=== PATIENT | female | born 1975 | race Caucasian/White ===

== ENCOUNTER → 2017-05-19 | Outpatient (CLI) | payer OTHER ==
[~2017-05-19] MED LIST: ALBUAER INH; IBUP-1451 PO; MTR600X PO; TRAM-10 PO
[2017-05-19 12:33] LABS: ESTIMATED AVERAGE GLUCOSE 105 mg/dl; HA1C FLAG Normal (Normal)
[2017-05-19 12:54] LABS: BLOOD UREA NITROGEN 16 mg/dl (7-18); BUN/CREATININE RATIO 18.6 (10-20); CALCIUM 8.6 mg/dl (8.5-10.1); CARBON DIOXIDE 25 mmol/L (21-32); CHLORIDE 108 mmol/L (98-107); CREATININE 0.85 mg/dl (0.60-1.20); GLUCOSE 84 mg/dl (70-99); POTASSIUM 4.3 mmol/L (3.5-5.1); SODIUM 140 mmol/L (136-145)
[2017-05-19 12:58] LABS: CHOLESTEROL 223 mg/dl (0-200); CHOLESTEROL/HDL RATIO 4.3; HDL CHOLESTEROL 52 mg/dl; LDL CHOLESTEROL CALCULATED 132 mg/dl; TRIGLYCERIDES 195 mg/dl (0-150); VERY LOW DENSITY LIPOPROT CALC 39 mg/dl
== END | disposition home or self-care (01) ==
LOC: C.LABPBG 10:46
PROVIDERS: ATTEND Physician Assistant
DX: Z00.00 Encounter for general adult medical examination without abnormal findings (principal); R63.5 Abnormal weight gain; E28.2 Polycystic ovarian syndrome

== ENCOUNTER → 2017-06-07 | Outpatient (CLI) | payer OTHER ==
[2017-06-07 12:39] LABS: ALT/SGPT 15 U/L (12-78); AST/SGOT 8 U/L (15-37); BLOOD UREA NITROGEN 11 mg/dl (7-18); BUN/CREATININE RATIO 11.7 (10-20); CALCIUM 8.3 mg/dl (8.5-10.1); CARBON DIOXIDE 24 mmol/L (21-32); CHLORIDE 106 mmol/L (98-107); CREATININE 0.98 mg/dl (0.60-1.20); GLUCOSE 139 mg/dl (70-99); POTASSIUM 3.7 mmol/L (3.5-5.1); SODIUM 137 mmol/L (136-145)
[2017-06-07 12:48] LABS: ALB/GLOB RATIO 0.9 (0.9-2); ALKALINE PHOSPHATASE 47 U/L (45-117)
== END | disposition home or self-care (01) ==
LOC: C.LABPBG 10:50
PROVIDERS: ATTEND Obstetrics & Gynecology
DX: E28.2 Polycystic ovarian syndrome (principal); R53.83 Other fatigue

== ENCOUNTER → 2017-06-15 | Outpatient (CLI) | payer OTHER ==
[2017-06-15 12:24] LABS: BASO % 0.3 %; BASO ABS # 0.03 K/uL (0-0.2); COMPLETE YES; EOS % 2.4 %; HEMATOCRIT 39.8 % (37-47); IG% 0.4 %; LYMPH % 36.3 %; LYMPH ABS # 3.24 K/uL (1.2-3.4); MEAN CELL VOLUME 89.6 fL (80-100); MEAN CORPUSCULAR HEMOGLOBIN 30.2 pg (25-34); MEAN CORPUSCULAR HGB CONC 33.7 g/dl (32-36); MEAN PLATELET VOLUME 9.7 fL (7.4-10.4); MONO % 5.5 %; NEUT % 55.1 %; PLATELET COUNT 315 K/uL (130-400); RED BLOOD COUNT 4.44 M/uL (4.2-5.4); WHITE BLOOD COUNT 8.93 K/uL (4.8-10.8)
== END | disposition home or self-care (01) ==
LOC: C.LABPBG 10:48
PROVIDERS: ATTEND Physician Assistant
DX: N63 Unspecified lump in breast (principal)